=== PATIENT | female | born 1940 | race Caucasian/White ===

== ENCOUNTER 2023-09-27 09:28 | Outpatient (AMB) | payer MEDICARE, OTHER, SELFPAY ==
--- NOTE | 2023-09-27 10:18 | AM.OFFWIN_ITS ---
Intake Vital Signs 09/27/23 10:20 Weight 130 lb BP 130/80 Blood Pressure Location Rt brachial Position Sitting Pulse 73 Pulse Source Pulse Oximeter Temp 97.9 F Temp Source Oral Pulse Oximetry (%) 95 Intake Visit Reasons: EST/swollen glands in meck (lobby masked) Intake Note: Patient here for headaches when waking up and also gets sore glands on and off. Patient Tobacco Use Status: Never used Tobacco Allergies No Known Allergies Allergy (Verified 09/27/23 10:21) Do you need a note to return to daycare/school/sports/work: No HPI HPI Comments History of Present Illness Details 83 y/o female patient who presents to [facility] in clinic with c/o Sore- throat, body aches and headaches. Denies fevers, nausea or vomiting. Denies any recent sick contact [facility] Social History Patient Tobacco Use Status: Never used Tobacco Review of Systems Const All systems reviewed & are unremarkable except as noted in HPI and below Physical Exam Vital Signs: Last Vital Signs Temp 97.9 F 09/27/23 10:20 Pulse 73 09/27/23 10:20 BP 130/80 09/27/23 10:20 Pulse Ox 95 09/27/23 10:20 Const General: comfortable and no acute distress Orientation/consciousness: patient oriented x3 HEENT Head: Yes normocephalic Ears: external ears normal and TM's normal bilaterally General nose exam: Normal nasal mucous membranes and turbinates present and No nasal discharge present Face and sinus: Yes sinuses nontender Mouth: moist mucous membranes Throat: Yes posterior oropharynx normal Resp Effort & Inspection: normal respiratory effort, able to speak in complete sentences and no cough Auscultation: clear to auscultation bilaterally, no crackles, no rales, no rhonchi and no wheezes Cardio Rate: regular rate Rhythm: regular rhythm Neuro General: patient oriented x3 Assessment & Plan Assessment & Plan (1) Upper respiratory infection: Code(s): J06.9 - Acute upper respiratory infection, unspecified Qualifiers: URI type: acute nasopharyngitis (common cold) Qualified Code(s): J00 - Acute nasopharyngitis [common cold] Plan: - OTC cold/cough remedies - acetaminophen for pain relief. - Rest and hydrate well (2) Generalized headaches: Code(s): R51.9 - Headache, unspecified Plan: - Acetaminophen for pain relief. Orders: Orders SARS-CoV2/FLU/RSV Today R09.89 - Other specified symptoms and signs involving the circulatory and respiratory systems Medications: New acetaminophen 1,000 mg (2 x 500 mg) PO Q6H PRN 30 caps 0RF fever J00 - Acute nasopharyngitis [common cold], R51.9 - Headache, unspecified Coding Level of Care Code Est Pt Level 3 (71199) Diagnoses Acute nasopharyngitis J00 URI type: acute nasopharyngitis (common cold) Generalized headaches R51.9 Time Spent (min) 15
[2023-09-27 10:20] VITALS: BP 130/80; PULSE 73; TEMP 36.6; O2SAT 95
== END 2023-09-27 10:47 | disposition home or self-care (01) ==
PROVIDERS: PCP Internal Medicine; Visit Provider Nurse Practitioner Family
DX: J00 Acute nasopharyngitis [common cold] (principal); R51.9 Headache, unspecified
CPT/HCPCS: 99213

== ENCOUNTER 2023-09-27 10:36 | Outpatient (REF) | payer MEDICARE, OTHER, SELFPAY ==
[2023-09-27 17:00] LABS: Influenza A PCR NEGATIVE (Negative); Influenza B PCR NEGATIVE (Negative); Resp Syncy Virus RNA Qual PCR NEGATIVE (Negative); SARS COV2 PCR INHOUSE NEGATIVE (Negative)
== END 2023-09-27 10:37 | disposition home or self-care (01) ==
LOC: HO.LAB 10:36
PROVIDERS: Visit Provider Nurse Practitioner Family
DX: R09.89 Other specified symptoms and signs involving the circulatory and respiratory systems (principal); Z11.52 Encounter for screening for COVID-19; Z20.828 Contact with and (suspected) exposure to other viral communicable diseases
CPT/HCPCS: 0241U

== ENCOUNTER 2023-12-27 15:16 | Outpatient (AMB) | payer MEDICARE, OTHER, SELFPAY ==
[2023-12-27 15:23] VITALS: BP 158/78; PULSE 78; TEMP 36.8; O2SAT 96; BMI 23.1
--- NOTE | 2023-12-27 15:23 | MHC.OFFWIV ---
Intake Vital Signs 12/27/23 15:23 Height 4 ft 11 in Weight 114 lb 6 oz BMI 23.1 BP 158/78 H Blood Pressure Location Rt brachial Position Sitting Pulse 78 Pulse Source Pulse Oximeter Temp 98.2 F Temp Source Oral Pulse Oximetry (%) 96 Oxygen Delivery Method Room Air Intake Visit Reasons: EP Lower AB pain Patient Tobacco Use Status: Never used Tobacco Allergies No Known Allergies Allergy (Verified 12/27/23 15:27) Do you need a note to return to daycare/school/sports/work: No HPI HPI Comments History of Present Illness Details This is an 83-year-old female with a past medical history of hypothyroidism, hysterectomy and cholecystectomy presenting for evaluation of lower abdominal pain that she has had for the past one week. Patient describes the pain as a dull ache and two days ago she started to have nausea. Patient denies having any fevers, chills, chest pain, dyspepsia, vomiting, diarrhea, dysuria, urinary frequency, urinary incontinence or back pain. She has not taken any medication for management of her symptoms. The patient's daughter is present and states that the patient's brother on 2 days ago following a diagnosis of pancreatic cancer only 3 weeks ago. The was yesterday and her mother has not been sleeping well for the past 3 weeks. [facility] Social History Patient Tobacco Use Status: Never used Tobacco Review of Systems Const All systems reviewed & are unremarkable except as noted in HPI and below Denies chills, Reports difficulty sleeping, Reports fatigue, Denies fever(s) and Denies night sweats Eyes Reports no additional complaints ENT Reports no additional complaints Card Reports no additional complaints Resp Reports no additional complaints GI Reports abdominal pain (lower abdominal pain), Denies bloating, Denies change in bowel habits, Denies dyspepsia, Denies diarrhea, Reports nausea and Denies vomiting Reports no additional complaints, Denies hematuria, Denies urinary incontinence, Denies urinary hesitancy and Denies urinary urgency Skin/Breast Reports system reviewed and no additional complaints, except as documented Neuro Reports no additional complaints Psych Reports no additional complaints Endo Reports no additional complaints and Reports fatigue Physical Exam Vital Signs: Last Vital Signs BP 158/78 H 12/27/23 15:23 BMI result Body Mass Index 23.1 Const General: cooperative, healthy appearing, comfortable, no acute distress, well developed, alert, awake and Physically active; No lethargic Nutritional Appearance: average body habitus Orientation/consciousness: patient oriented x3 and No lethargic Limitations: no limitations HEENT Mouth: moist mucous membranes Resp Effort & Inspection: normal respiratory effort, able to speak in complete sentences, normal respiratory pattern, no audible wheezes and no respiratory distress Auscultation: clear to auscultation bilaterally Cardio Rate: regular rate Rhythm: regular rhythm GI Palpation (GI): Soft to palpation, not firm, nontender and no guarding Auscultation: normal bowel sounds General: Yes Bimanual renal exam normal bilaterally, Yes bladder normal to palpation and Yes no CVA tenderness Bimanual exam- vagina & uterus: bladder normal to palpation Back/Spine/Pelvis Back: no CVA tenderness Skin General skin exam: no rashes or lesions noted Neuro General: patient oriented x3 Psych Appearance: grossly normal Mental Status: mental status grossly normal Insight: Good insight present (Psych) Judgement: Good judgement present (Psych) Results AMB Urinalysis, Automated UA Leukoctes 15 Edmund/uL Last Edit by Pernell Alford MA on 12/27/23 15:46 UA Nitrite Negative Last Edit by Pernell Alford MA on 12/27/23 15:46 UA Urobilinogen 0.2 mg/dL Last Edit by Pernell Alford MA on 12/27/23 15:46 UA Protein 0 mg/dL Last Edit by Pernell Alford MA on 12/27/23 15:46 UA pH 6.0 Last Edit by Pernell Alford MA on 12/27/23 15:46 UA Blood 0 Arian/uL Last Edit by Pernell Alford MA on 12/27/23 15:46 UA Specific [place] 1.015 Last Edit by Pernell Alford MA on 12/27/23 15:46 UA Ketone Negative Last Edit by Pernell Alford MA on 12/27/23 15:46 UA Bilirubin 0 mg/dL Last Edit by Pernell Alford MA on 12/27/23 15:46 UA Glucose 0 mg/dL Last Edit by Pernell Alford MA on 12/27/23 15:46 Results Reviewed Results Reviewed: Urinalysis reviewed with patient. Assessment & Plan Assessment & Plan (1) Abdominal pain: Comment: Patient's abdomen is soft and nontender. There is no evidence of an acute urinary tract infection on urinalysis. Code(s): R10.9 - Unspecified abdominal pain Qualifiers: Abdominal location: lower abdomen, unspecified Qualified Code(s): R10.30 - Lower abdominal pain, unspecified Plan: No antibiotic therapy is warranted at this time. (2) Nausea: Code(s): R11.0 - Nausea Plan: Zofran ODT q.6 hours as needed for nausea. Diet as tolerated. (3) Insomnia: Comment: Patient is experiencing a normal grief reaction secondary to the loss of her brother and his very recent diagnosis of pancreatic cancer. Code(s): G47.00 - Insomnia, unspecified Qualifiers: Insomnia type: adjustment Qualified Code(s): F51.02 - Adjustment insomnia Plan: Hydroxyzine 10 mg q.h.s. p.r.n. insomnia. Patient will follow up with her primary care provider as an outpatient. Medications: New ondansetron 4 mg PO Q8H PRN 10 tabs 0RF nausea and vomiting hydroxyzine HCl 10 mg PO BEDTIME 5 tabs 0RF Coding Level of Care Code New Pt Level 4 (21717) Diagnoses Lower abdominal pain R10.30 Abdominal location: lower abdomen, unspecified Nausea R11.0 Adjustment insomnia F51.02 Insomnia type: adjustment Time Spent (min) 30
== END 2023-12-27 16:09 | disposition home or self-care (01) ==
PROVIDERS: PCP Internal Medicine; Visit Provider Physician Assistant
DX: R10.30 Lower abdominal pain, unspecified (principal); R11.0 Nausea; F51.02 Adjustment insomnia
CPT/HCPCS: 99204